=== PATIENT | male | born 1975 | race Caucasian/White ===

== ENCOUNTER 2018-03-28 14:05 | Emergency (ER) | payer OTHER ==
[~2018-03-28] VITALS: Ht 193 cm; Wt 104.3 kg
[2018-03-28 14:10] VITALS: BP 173/95
[2018-03-28] MEDS ORDERED: PENICILLIN V P500 MG PO ×2 (14:22→14:38)
[2018-03-28] MEDS ORDERED: HYDROCODONE-AP1 EAC6 PO ×2 (14:22→14:38)
== END 2018-03-28 14:35 | disposition home or self-care (01) ==
LOC: M.ERS 14:05
DX: K02.9 Dental caries, unspecified (principal); K08.9 Disorder of teeth and supporting structures, unspecified; F17.210 Nicotine dependence, cigarettes, uncomplicated

== ENCOUNTER 2018-06-15 10:11 | Emergency (ER) | payer OTHER ==
[~2018-06-15] VITALS: Ht 193 cm; Wt 99.8 kg
[~2018-06-15 10:11] MED LIST: HYDROCODONE-AP1 EAC6 PO; PENICILLIN V P500 MG PO
[2018-06-15] MEDS ORDERED: KEFLEX500 M1 PO (10:37)
[2018-06-15] MEDS ORDERED: NORCO 5-325 TA1 EACH PO (10:37)
[2018-06-15 10:51] VITALS: BP 144/88
== END 2018-06-15 10:52 | disposition home or self-care (01) ==
LOC: M.ERS 10:11
DX: K08.89 Other specified disorders of teeth and supporting structures (principal); R22.0 Localized swelling, mass and lump, head; F17.210 Nicotine dependence, cigarettes, uncomplicated

== ENCOUNTER 2018-09-12 11:32 | Emergency (ER) | payer OTHER ==
[~2018-09-12] VITALS: Ht 193 cm; Wt 108.9 kg
[~2018-09-12 11:32] MED LIST changes: +KEFLEX500 M1 PO; +NORCO 5-325 TA1 EACH PO
[2018-09-12 11:37] VITALS: BP 153/85
[2018-09-12] MEDS ORDERED: MAGIC MOUTHWASH PO (12:03)
[2018-09-12] MEDS ORDERED: PENICILLIN VK500 M1 PO (12:03)
[2018-09-12] MEDS ORDERED: NORCO 7.5-3251 EACH PO (12:03)
[2018-09-12] MEDS ORDERED: IBUPROFEN 800800 MG PO (12:03)
[2018-09-13] MEDS ORDERED: CLEOCIN HCL150 MG PO (13:08)
== END 2018-09-12 12:21 | disposition home or self-care (01) ==
LOC: M.ERS 11:32
DX: L03.211 Cellulitis of face (principal); F17.210 Nicotine dependence, cigarettes, uncomplicated; Z88.8 Allergy status to other drugs, medicaments and biological substances

== ENCOUNTER 2018-09-13 12:16 | Emergency (ER) | payer OTHER ==
[~2018-09-13] VITALS: Ht 193 cm; Wt 108.9 kg
[~2018-09-13 12:16] MED LIST changes: +IBUPROFEN 800800 MG PO; +MAGIC MOUTHWASH PO; +NORCO 7.5-3251 EACH PO; +PENICILLIN VK500 M1 PO
[2018-09-13] MEDS ORDERED: CLEOCIN HCL150 MG PO (13:08)
[2018-09-13 13:21] VITALS: BP 190/98
== END 2018-09-13 13:25 | disposition home or self-care (01) ==
LOC: M.ERS 12:16
DX: K04.7 Periapical abscess without sinus (principal); K02.9 Dental caries, unspecified; F17.210 Nicotine dependence, cigarettes, uncomplicated; Z88.1 Allergy status to other antibiotic agents; Z88.6 Allergy status to analgesic agent

== ENCOUNTER 2018-10-02 01:11 | Inpatient (IN) | payer OTHER ==
[~2018-10-02] VITALS: Ht 193 cm; Wt 117.8 kg
[2018-10-02] VITALS (7 sets, daily range): BP systolic 130–176; BP diastolic 73–94
--- NOTE | ~2018-10-02 | CON ---
[address] [address] CONSULTATION Name: JALEESA ELISE BEST Room: [address] IN M.R.#: [id number] Admission: 10/02/18 Attend Phys: Reba Hernandez MD Discharge: Date of : 77 Report #: [id number] THIS REPORT FOR: //name// CC: ALISON physician/PCP Reba Hernandez DATE OF SERVICE: 10/02/2018 REASON FOR CONSULTATION: This is a consultation obtained by Dr. Buchanan for acute kidney injury and rhabdomyolysis. HISTORY OF PRESENT ILLNESS: The patient is a 43-year-old gentleman who was admitted last night with severe cramping of his muscles and pain. He came to the ER and was found to be in acute kidney injury. 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 He was particularly busy at work yesterday climbing up multiple flights of stairs without getting adequately hydrated. The patient started noticing worsening muscle pains starting the afternoon. He vomited once. He denies having any diarrhea. He took 4 Aleve to contract the pain, but the pain did not get any better and he came to the ER subsequently. The patient reports he has not urinated all afternoon and evening. The last time he passed in the urine was 12:00 yesterday afternoon. In the ER, the patient was found to be in acute kidney injury with a creatinine level of 5.1. His BUN was 34. AST was 65. He has not given us any urine sample until this morning. His CK level was 2900. PAST MEDICAL HISTORY: No significant past medical history to report. The patient took a course of antibiotics many months ago, reportedly for dental abscess, but does not take any regular medications. 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 He smokes a pack and a half of cigarettes a day. He occasionally uses marijuana. He denies any other street drugs. He is adopted, so does not know his family history. He has never had any kidney problem before. He tells me a couple of years ago, he had a physical done and was told his kidneys are normal. REVIEW OF SYSTEMS: He feels tired. He denies any particular shortness of breath, no chest pain. His muscle pain is still present. He denies any fevers. PHYSICAL EXAMINATION: VITAL SIGNS: Blood pressure is 152/94, pulse of 112 and temperature 36.7. GENERAL: He is awake. He is alert, answers all questions appropriately. LUNGS: Diminished bilaterally. HEENT: Mucous membranes are dry. NECK: Neck veins are flat. LUNGS: Clear. CARDIOVASCULAR: Regular S1, [place] [address] CONSULTATION Name: JALEESA ELISE Room: [address] IN M.R.#: [id number] Admission: 10/02/18 Attend Phys: Reba Hernandez MD Discharge: Date of : 77 Report #: [id number] ABDOMEN: Soft, nontender. EXTREMITIES: Tender, but no edema is noted. LABORATORY DATA: White count is 12.9, hemoglobin is 15.3, platelets 403,000. Sodium 139, potassium 3.8, bicarbonate 23, anion gap 18, BUN 34, creatinine 5.1, magnesium 2.6. AST 65, alkaline phosphatase and ALT normal, albumin 5.6. Creatinine kinase 2900. ASSESSMENT: 1. Acute kidney injury. 2. Baseline creatinine not known, but per the patient was normal many years ago. 3. Acute rhabdomyolysis. 4. Acute kidney injury secondary to rhabdomyolysis and use of NSAIDs. PLAN: 1. The patient has already been given normal saline infusions. 2. Change the IV fluids to D5 with 3 amps of bicarbonate at 200 mL an hour. 3. Stat ultrasound of the kidneys. 4. Place a Turner catheter. 5. Repeat labs in 8 hours. 6. Subsequent management to follow based on these labs. The patient was made aware of the possibility that if his renal function does not turn around over the next 24 hours, he may need dialysis. By: [id number] Stringer MD /devi
[~2018-10-02 01:11] MED LIST changes: +CLEOCIN HCL150 MG PO
[2018-10-02 02:01] LABS: ABSOLUTE BASOPHILS 0.1 thou/uL (0.0-0.2); ABSOLUTE LYMPHOCYTES 1.3 thou/uL (0.8-5.3); ABSOLUTE MONOCYTES 0.8 thou/uL (0.0-1.2); ABSOLUTE NEUTROPHILS 10.8 thou/uL (1.6-8.1); BASOPHILS 0.5 %; HEMATOCRIT 45.2 % (42.0-52.0); HEMOGLOBIN 15.3 gm/dL (14.0-18.0); LYMPHOCYTES 9.9 %; MCH 30.9 pg (26.0-34.0); MCHC 33.8 g/dL (28.0-37.0); MCV 91.2 fL (80.0-100.0); MPV 7.8 fl. (7.2-11.1); NUCLEATED RBCS 0 /100WBC; PLATELET COUNT* 403 thou/uL (150-400); POLYS 83.6 %; RBC 4.95 mil/uL (4.50-6.00); RDW-CV 13.2 % (10.5-14.5); WBC 12.9 thou/uL (4.0-11.0)
[2018-10-02 02:09] LABS: CALCIUM 11.3 mg/dL (8.5-10.1); CREATININE 5.1 mg/dL (0.6-1.3); POTASSIUM 3.8 mmol/L (3.5-5.1)
[2018-10-02 02:22] LABS: ALBUMIN 5.6 g/dL (3.4-5.0); MAGNESIUM 2.6 mg/dL (1.8-2.4); TOTAL BILIRUBIN 1.6 mg/dL (<0.1-1.0); TOTAL PROTEIN 10.8 g/dL (6.4-8.2)
--- NOTE | 2018-10-02 05:44 | NUR ---
PT ADMITTED TO ROOM 205 AT 055 FOR RENAL FAILURE, RHABDO. PT REPORTS WORKING ALL DAY IN THE HEAT WITHOUT URINATING SINCE NOON 10/01/18. PT GIVEN 2 LITER SALINE BOLUS IN ED. NS INFUSING AT 150 ML/HR VIA 18 GUAGE SALINE LOCK IN RIGHT AC. PT ON REGULAR DIET, POPSYCLE GIVEN PER PT REQUEST. PT DENIES NAUSEA. PT GIVEN 4 MG MORPHINE IV FOR SEVERE MUSCLE AND BACK PAIN RATED AT 10. PT ORIENTED TO CALL LIGHT, BED CONTROLS AND ROOM. CALL LIGHT IN REACH, PT DEMONSTRATES PROPER USE.
--- NOTE | 2018-10-02 06:14 | NUR ---
DR JI PAGED FOR CRAMPING PAIN IN LEGS. CONSULT CALLED TO ANSWERING SERVICE FOR DR CADENA REGARDING ACUTE RENAL FAILURE, RHABDO.
--- NOTE | 2018-10-02 06:24 | NUR ---
RECIEVED CALL BACK FROM DR JI. REPORTED PT'S BUN CREATININE, GFR. REPORTED CALL MADE TO NEPHROLOGY REGARDING RENAL CONSULT. REPORTED PT'S MUSCLE CRAMPING AND PAIN. ORDERS RECIEVED.
--- NOTE | 2018-10-02 06:35 | NUR ---
SPOKE WITH DR CADENA REGARDING CONSULT. RECIEVED ORDERS TO INSERT RAMIREZ CATHETER FOR CRITICAL I&O TO MONITOR HOURLY URINE OUTPUT. RECIEVED ORDER TO START BICARB DRIP AND INCREASE RATE OF CURRENT IV FLUIDS. REPORTED PT'S BLOOD PRESSURE, RENAL FUNCTION AND SERUM CO2 LEVELS. ASKED FOR TRANSFER TO ICU. RECIEVED ORDER FOR STAT ULTRA SOUND OF KIDNEYS.
--- NOTE | 2018-10-02 06:47 | NUR ---
ORDER ENTERED FOR RENAL ULTRA SOUND. MOTOR BLOCK MECHANIC PAGED BY CUSTOMER ACCOUNT SPECIALIST SANTANA IN ED.
[2018-10-02 07:59] LABS: URINE BILIRUBIN NEGATIVE (Negative); URINE BLOOD 3+ (Negative); URINE CLARITY SL CLOUDY; URINE COLOR DARK YELLOW; URINE GLUCOSE-RANDOM NEGATIVE (Negative); URINE KETONES TRACE (Negative); URINE LEUKOCYTES-REFLEX NEGATIVE (Negative); URINE NITRITE-REFLEX NEGATIVE (Negative); URINE PROTEIN 2+ (Negative); URINE SPECIFIC GRAVITY >= 1.030 (1.005-1.030); URINE UROBILINOGEN 0.2 E.U./dl (0.2-1.0)
[2018-10-02 08:07] LABS: AMP/METHAMP POSITIVE (Negative); BARBITURATES Negative (Negative); BENZODIAZEPINES Negative (Negative); COCAINE Negative (Negative); METHADONE Negative (Negative); OPIATES POSITIVE (Negative); PCP Negative (Negative); THC Negative (Negative)
[2018-10-02 08:13] LABS: SQUAMOUS 4-10 Moderate /LPF (0-3)
[2018-10-02 08:14] LABS: URINE WBC-REFLEX 0-5 Rare /HPF (0-5)
[2018-10-02 08:17] LABS: BACTERIA-REFLEX >30 Many /HPF (None Seen); MUCUS >6 Heavy strn/LPF (None Seen); URINE RBC 0-2 Rare /HPF (0-2)
[2018-10-02 08:18] LABS: HYALINE CASTS 0-3 Few /LPF (None Seen)
[2018-10-02 08:19] LABS: COARSE GRANULAR CASTS 0-3 Few /LPF (None Seen); CRYSTALS None Seen /LPF (None Seen); FINE GRANULAR CASTS 0-3 Few /LPF (None Seen)
[2018-10-02 12:47] LABS: CALCIUM 9.4 mg/dL (8.5-10.1); CREATININE 4.8 mg/dL (0.6-1.3); MAGNESIUM 2.6 mg/dL (1.8-2.4); POTASSIUM 3.5 mmol/L (3.5-5.1)
[2018-10-02 12:51] LABS: CALCIUM 9.2 mg/dL (8.5-10.1); PHOSPHORUS* 5.1 mg/dL (2.5-4.9)
[2018-10-02 12:53] LABS: DIRECT BILIRUBIN 0.1 mg/dL (<0.1-0.3)
--- NOTE | 2018-10-02 18:12 | NUR ---
ASSUMED PT CARE AT 0700, PT A&O X4, VSS, RA, WEDGER TRACING SINUS RHYTHM TO SINUS TACHY WITH EXERTION, FULL ASSESSMENT CHARTED. RAMIREZ PLACED, CATHETER PATENT AND DRAINING DARK YELLOW URINE. NEPHROLOGY NOTIFIED OF PTS LABS, OUT PUT, AND RENAL US RESULTS, STATED TO CONT WITH SODIUM BICARB, PT TOLERATING WELL. HOURLY ROUNDING COMPLETED.
[2018-10-03] VITALS: BP 133/69
--- NOTE | 2018-10-03 02:48 | NUR ---
ASSUMED CARE OF PT AT 1900. PT IS ALERT AND ORIENTED. VSS. PERRLA. PT IS UP AD MOJGAN. PT IS IN SINUS RYTHM ON THE TELEMETRY. PT HAS A RAMIREZ CATHETER IN PLACE. PT IS SLEEPING QUIETLY IN BED. RESPIRATIONS ARE EVEN AND NONLABORED. WILL CONTINUE TO MONITOR PT.
[2018-10-03 04:00] VITALS: BP 109/66
[2018-10-03 04:55] LABS: HEMATOCRIT 32.6 % (42.0-52.0); MCH 31.1 pg (26.0-34.0); MCHC 33.9 g/dL (28.0-37.0); MCV 91.7 fL (80.0-100.0); MPV 7.8 fl. (7.2-11.1); RBC 3.55 mil/uL (4.50-6.00); RDW-CV 12.9 % (10.5-14.5); WBC 5.2 thou/uL (4.0-11.0)
[2018-10-03 05:10] LABS: ALBUMIN 3.1 g/dL (3.4-5.0); CALCIUM 8.8 mg/dL (8.5-10.1); MAGNESIUM 2.2 mg/dL (1.8-2.4); TOTAL BILIRUBIN 0.7 mg/dL (<0.1-1.0); TOTAL PROTEIN 6.5 g/dL (6.4-8.2)
[2018-10-03 05:16] LABS: POTASSIUM 2.9 mmol/L (3.5-5.1)
[2018-10-03 07:04] LABS: URINE POTASSIUM-RANDOM 17.1 mmol/L
[2018-10-03 08:00] VITALS: BP 131/69
--- NOTE | 2018-10-03 08:00 | NUR ---
ASSUMED PT CARE AT 0700, PT A&O X4, VSS, AUDITING CONTROL CLERK TRACING SINUS RHYTHM, AT TIMES BECOMES ASHKAN, RA, FULL ASSESSMENT CHARTED. GIRLFRIEND AT BEDSIDE CONT TO QUESTION TOXICOLOGY SCREENING, THIS NURSE EDUCATED HER THAT HOSPITAL STAFF IS NOT ALLOWED TO GIVE THAT INFORMATION OUT WITHOUT PTS CONSENT AND SHE WOULD NEED TO SPEAK TO PT ABOUT RESULTS, GIRLFRIEND STATES UNDERSTANDING. RAMIREZ IN PLACE, PATENT, DRAINING DARK YELLOW URINE WITH NO SEDIMENT NOTED. WILL CONT POC.
--- NOTE | 2018-10-03 09:47 | NUR ---
Pt is A&O. Resides at home with s/o. Active and independent. No DME. No hx of HH or SNF. CM offered drug treatment info, Pt declined and plans to stop on his own. No needs anticipated. Following.
[2018-10-03 11:18] LABS: SMEAR FOR EOSINOPHILS Rare per HPF
[2018-10-03 11:42] VITALS: BP 124/85
[2018-10-03 15:51] VITALS: BP 120/66
--- NOTE | 2018-10-03 16:57 | EKG ---
[place] [address] ELECTROCARDIOGRAM REPORT Name: JALEESA ELISE Room: [address] ADM IN .R.#: [id number] Admission: 10/02/18 Attend Phys: Reba Hernandez MD Discharge: Date of : 77 Report #: [id number] THIS REPORT FOR: //name// [facility] ED Test Date: 2018-10-02 Test Time: 01:50:15 Pat Name: JALEESA ELISE Department: Room: [address] Gender: M Rug Renovator: : 1975 Requested By: Deepthi Buchanan Order Number: [id number] Brandy MD: Conner Conway Measurements Intervals [place] Rate: 132 P: 55 WI: 96 QRS: 80 QRSD: 109 T: 75 QT: 380 QTc: 563 Interpretive Statements Sinus tachycardia Prolonged QT interval Artifact in lead(s) I,aVF,V1,V2,V3,V4,V5,V6 and baseline wander in lead(s) II,aVF,V4,V5 No previous ECG available for comparison Electronically Signed On 10-03-2018 16:57:40 CDT by Conner Conway [email or web address] <ELECTRONICALLY SIGNED> By: Conner Conway MD, FACC 10/03/18 1657 9 Conner Conway MD, FAC /EPI
--- NOTE | 2018-10-03 16:57 | EKG ---
[place] [address] ELECTROCARDIOGRAM REPORT Name: JALEESA ELISE Room: [address] ADM IN .R.#: [id number] Admission: 10/02/18 Attend Phys: Reba Hernandez MD Discharge: Date of : 77 Report #: [id number] THIS REPORT FOR: //name// [facility] ED Test Date: 2018-10-02 Test Time: 02:25:44 Pat Name: JALEESA ELISE Department: Room: [facility] Gender: M Sales Operations Manager: : 1975 Requested By: Deepthi Buchanan Order Number: [id number] MD: Conner Conway Measurements Intervals [place] Rate: 121 P: 60 AR: 157 QRS: 77 QRSD: 94 T: -41 QT: 340 QTc: 483 Interpretive Statements Sinus tachycardia Borderline T abnormalities, inferior leads Borderline prolonged QT interval No previous ECG available for comparison Electronically Signed On 10-03-2018 16:57:45 CDT by Conner Conway [email or web address] <ELECTRONICALLY SIGNED> By: Conner Conway MD, [facility] 10/03/18 1657 4 4 Conner Conway MD, FACC /EPI
--- NOTE | 2018-10-03 17:07 | EKG ---
[place] [address] ELECTROCARDIOGRAM REPORT Name: JALEESA ELISE Room: [address] ADM IN M.R.#: [id number] Admission: 10/02/18 Attend Phys: Reba Hernandez MD Discharge: Date of : 77 Report #: [id number] THIS REPORT FOR: //name// [facility] Test Date: 2018-10-03 Test Time: 10:34:01 Pat Name: JALEESA ELISE Department: Room: [address] Gender: M Lining Baster: : 1975 Requested By: Mukesh Yang Order Number: [id number] Brandy MD: Conner Conway Measurements Intervals [place] Rate: 56 P: 33 MI: 156 QRS: 29 QRSD: 108 T: 30 QT: 471 QTc: 455 Interpretive Statements Sinus rhythm No previous ECG available for comparison Electronically Signed On 10-03-2018 17:07:01 CDT by Conner Conway [email or web address] <ELECTRONICALLY SIGNED> By: Conner Conway MD, [facility] 10/03/18 1707 1034 1034 Conner Conway MD, FACC /EPI
--- NOTE | 2018-10-03 17:47 | NUR ---
PT A&O X4, REMAINS ON RA, RED CROSS EXECUTIVE DIRECTOR CONT TO TRACE SINUS RHYTHM/SINUS ASHKAN. PT LETHARGIC FOR MOST OF DAY STATING HE HAS NOT SLEPT MUCH FOR LAST FEW DAYS D/T MUSCLE PAIN/CRAMPING, BP STABLE, RA, LS CTA. HOURLY ROUNDING COMPLETED.
[2018-10-03 20:00] VITALS: BP 128/67
[2018-10-04] VITALS: BP 130/70
--- NOTE | 2018-10-04 03:41 | NUR ---
ASSUMED CARE OF PT AT 1900. PT IS ALERT AND ORIENTED. VSS. PERRLA. PT REPORTS ONGOING PAIN. PT IS IN SINUS RYTHM ON THE TELEMETRY. PT IS RESTING COMFORTABLY IN BED. RESPIRATIONS ARE EVEN AND NONLABORED. WILL CONTINUE TO MONITOR PT.
[2018-10-04 03:55] VITALS: BP 118/69
[2018-10-04 04:55] LABS: CALCIUM 8.5 mg/dL (8.5-10.1); MAGNESIUM 1.7 mg/dL (1.8-2.4)
[2018-10-04 05:03] LABS: CREATININE 1.7 mg/dL (0.6-1.3)
[2018-10-04 05:11] LABS: CALCIUM 8.5 mg/dL (8.5-10.1)
[2018-10-04 05:26] LABS: CREATININE 1.7 mg/dL (0.6-1.3); POTASSIUM 4.1 mmol/L (3.5-5.1)
[2018-10-04 08:00] VITALS: BP 143/82
--- NOTE | 2018-10-04 17:21 | NUR ---
ASSUMED PT CARE AT 0700, PT A&O X4, UP AD MOJGAN, VSS, RA, PT MADE MED SURG STATUS THIS AM. PT CONT TO C/O SOME PAIN/MUSCLE CRAMPING IN BLE, NEW ORDERS FOR MUSCLE RELAXERS, PT TOLERATING WELL. HOURLY ROUNDING COMPLETED.
[2018-10-04 20:00] VITALS: BP 143/80
[2018-10-05] VITALS: BP 122/68
--- NOTE | 2018-10-05 05:32 | NUR ---
PT SLEPT FAIRLY WELL THIS SHIFT. HAD SEVERAL SNACKS, S/O AT BEDSIDE. RECEIVING SCHEDULED FLEXERIL AND ATIVAN WITH GOOD RESULT. RAMIREZ DRAINING YELLOW URINE. AM LABS DRAWN. RAC IVF INFUSING PER PUMP. M/S STATUS, TO BE TRANSFERRED TO 3W AFTER CHANGE OF SHIFT THIS MORNING. VSS. ABLE TO USE CALL LITE AND MAKE NEEDS KNOWN.
[2018-10-05 05:45] LABS: CALCIUM 8.6 mg/dL (8.5-10.1); CREATININE 1.2 mg/dL (0.6-1.3); POTASSIUM 4.2 mmol/L (3.5-5.1)
[2018-10-05 08:30] VITALS: BP 155/92
[2018-10-05] MEDS ORDERED: CYCLOBENZAPRINE10 MG PO (10:31)
[2018-10-05 11:45] VITALS: BP 155/92
[2018-10-05 12:09] VITALS: BP 155/92
--- NOTE | 2018-10-05 12:24 | NUR ---
PT.TO BE DISCHARGED TODAY. HE INFORMED RN THAT THEY (HE AND GIRLFRIEND )HAVE NO PLACE TO GO AT DISCHARGE. CM SAW HIM AND GIRLFRIEND. GAVE THEM INFORMATION ON TEMP.HOUSING ,morphCARD [place], ETC.-YOU HAVE TO BE ABLE TO PROVE MARRIAGE IF YOU WANT TO STAY IN SAME ROOM S.O. SHE SAID THEY HAVE BEEN STAYING IN HER VAN. BOTH OF THEIR FAMILIES ARE IN [place]. ADDRESS ON [address] IS THAT OF HER SON'S. SHE SAID THEY CAN NOT GO BACK THERE BECAUSE HE HAS A ROOMATE AND BABY. ALSO GAVE PACKET FOR THE UNINSURED WITH [facility] [employer] CARD. SHOWED HER HOW TO GOOGLE [facility] [employer] AND FIND MEDICATION AND PHARMACY'S WHERE THEY ARE THE CHEAPEST. PT.ONLY HAS ONE PRESCRIPTION, WHICH IS FOR CYCLOBENZAAPRINE. OFFERED TO MAKE FOLLOW UP APPT.WITH [facility] FOR PT. HE REFUSED. ENCOURAGED HIM TO FOLLOW UP WITH A FOR LABS,ETC. HE SLEPT DURING MOST OF THE CONVERSATION. PT. WILL EAT LUNCH HERE AND THEN BE DISCHARGED.
[2018-10-05 14:00] VITALS: BP 155/92
--- NOTE | 2018-10-05 14:30 | NUR ---
I ASSUMED CARE OF THE PATIENT AT 0800. HE IS ALERT AND ORIENTED X4 AND IS UP AD MOJGAN. HE IS A TRANSFER FROM [facility]. BED IS IN THE LOW LOCKED POSITION AND CALL LIGHT IS IN REACH. HOURLY ROUNDING IS COMPLETED AND PATIENT NEEDS ARE MET. PAIN IS MANAGED WITH PRN MEDS. RAMIREZ IS D/C'D AND IV IS D/C'D. PATIENT WAS DISCHARGED WITH GIRLFRIEND AND SCRIPTS. CASE MANAGEMENT COMPILED A LIST OF HOMELESS SHELTERS AND FOUND COUPONS FOR SCRIPTS. WALKED OUT AT 1400.
== END 2018-10-05 14:00 | disposition home or self-care (01) | DRG 557 ==
LOC: M.ERS 01:11 → M.2W 03:00 → M.TBA-ER 03:00 → M.2W 05:10 → M.3W 10-05 07:50
PROVIDERS: Emergency Medicine; Internal Medicine; ADMIT Internal Medicine
DX: M62.82 Rhabdomyolysis (principal); N17.0 Acute kidney failure with tubular necrosis; T67.0XXA Heatstroke and sunstroke, initial encounter; E87.2 Acidosis; R65.10 Systemic inflammatory response syndrome (SIRS) of non-infectious origin without acute organ dysfunction; F17.210 Nicotine dependence, cigarettes, uncomplicated; E86.9 Volume depletion, unspecified; E80.6 Other disorders of bilirubin metabolism; X58.XXXA Exposure to other specified factors, initial encounter; E83.52 Hypercalcemia; F15.10 Other stimulant abuse, uncomplicated; K75.81 Nonalcoholic steatohepatitis (NASH); T39.395A Adverse effect of other nonsteroidal anti-inflammatory drugs [NSAID], initial encounter; Z79.2 Long term (current) use of antibiotics; Z79.1 Long term (current) use of non-steroidal anti-inflammatories (NSAID); Y93.89 Activity, other specified; Y92.89 Other specified places as the place of occurrence of the external cause; Y99.8 Other external cause status; Z79.899 Other long term (current) drug therapy; Z88.1 Allergy status to other antibiotic agents; Z88.8 Allergy status to other drugs, medicaments and biological substances

== ENCOUNTER 2018-10-24 19:47 | Emergency (ER) | payer OTHER ==
[~2018-10-24] VITALS: Ht 193 cm; Wt 104.3 kg
[~2018-10-24 19:47] MED LIST changes: +CYCLOBENZAPRINE10 MG PO
[2018-10-24 20:23] LABS: URINE BILIRUBIN NEGATIVE (Negative); URINE BLOOD NEGATIVE (Negative); URINE CLARITY CLEAR; URINE COLOR YELLOW; URINE GLUCOSE-RANDOM NEGATIVE (Negative); URINE KETONES NEGATIVE (Negative); URINE LEUKOCYTES-REFLEX NEGATIVE (Negative); URINE NITRITE-REFLEX NEGATIVE (Negative); URINE PROTEIN TRACE (Negative); URINE SPECIFIC GRAVITY >= 1.030 (1.005-1.030); URINE UROBILINOGEN 0.2 E.U./dl (0.2-1.0)
[2018-10-24 20:55] LABS: ABSOLUTE BASOPHILS 0.1 thou/uL (0.0-0.2); ABSOLUTE EOSINOPHILS 0.1 thou/uL (0.0-0.7); ABSOLUTE LYMPHOCYTES 1.8 thou/uL (0.8-5.3); ABSOLUTE MONOCYTES 0.5 thou/uL (0.0-1.2); ABSOLUTE NEUTROPHILS 4.7 thou/uL (1.6-8.1); BASOPHILS 0.8 %; EOSINOPHILS 0.9 %; HEMATOCRIT 36.4 % (42.0-52.0); HEMOGLOBIN 12.1 gm/dL (14.0-18.0); LYMPHOCYTES 25.7 %; MCHC 33.3 g/dL (28.0-37.0); MCV 93.1 fL (80.0-100.0); MPV 7.2 fl. (7.2-11.1); NUCLEATED RBCS 0 /100WBC; PLATELET COUNT* 298 thou/uL (150-400); POLYS 65.6 %; RBC 3.91 mil/uL (4.50-6.00); WBC 7.2 thou/uL (4.0-11.0)
[2018-10-24 21:06] LABS: CALCIUM 8.9 mg/dL (8.5-10.1); CREATININE 1.1 mg/dL (0.6-1.3); POTASSIUM 4.4 mmol/L (3.5-5.1)
[2018-10-24 21:19] LABS: ALBUMIN 3.7 g/dL (3.4-5.0); CK-MB MASS 1.7 ng/mL (<0.5-3.6); TOTAL BILIRUBIN 0.3 mg/dL (<0.1-1.0); TOTAL PROTEIN 7.5 g/dL (6.4-8.2)
[2018-10-24] MEDS ORDERED: TORADOL 10 MG T10 MG PO (21:58)
[2018-10-24 22:25] VITALS: BP 143/81
--- NOTE | 2018-10-25 11:10 | EKG ---
[place] [address] ELECTROCARDIOGRAM REPORT Name: JALEESA ELISE [id number] Admission: 10/24/18 Attend Phys: Discharge: 10/24/18 Date of : 77 Report #: [id number] THIS REPORT FOR: //name// [facility] ED Test Date: 2018-10-24 Test Time: 21:14:52 Pat Name: JALEESA ELISE Department: Room: Gender: M Road Tester: [place] : 1975 Requested By: Susana Bullard Order Number: [id number] MD: Leon Smith Measurements Intervals [place] Rate: 84 P: 56 AK: 160 QRS: 52 QRSD: 96 T: 44 QT: 385 QTc: 456 Interpretive Statements Sinus rhythm Compared to ECG 10/03/2018 10:34:01 No significant changes Electronically Signed On 10-25-2018 11:10:17 CDT by Leon Smith [email or web address] <ELECTRONICALLY SIGNED> By: Leon Smith MD, [facility] 10/25/18 1110 2114 Leon Smith MD, FACC /EPI
== END 2018-10-24 22:28 | disposition home or self-care (01) ==
LOC: M.ERS 19:47
PROVIDERS: Nurse Practitioner Family; Personal Emergency Response Attendant
DX: T67.5XXA Heat exhaustion, unspecified, initial encounter (principal); E86.0 Dehydration; M54.5 Low back pain; F17.210 Nicotine dependence, cigarettes, uncomplicated; Z88.5 Allergy status to narcotic agent; Z88.1 Allergy status to other antibiotic agents; X58.XXXA Exposure to other specified factors, initial encounter; Y93.89 Activity, other specified; Y92.89 Other specified places as the place of occurrence of the external cause; Y99.8 Other external cause status